=== PATIENT | female | born 1960 ===

== ENCOUNTER → 2019-10-12 09:36 | Outpatient (CLI) | payer OTHER, SELFPAY ==
[2019-10-12 11:08] LABS: Cholesterol 310 mg/dL (140-199); HDL Cholesterol 60 mg/dL (40-60); LDL Cholesterol Calculated 202 mg/dL (<100); Triglycerides 239 mg/dL (35-150)
== END ==
PROVIDERS: PCP Internal Medicine; Visit Provider Internal Medicine
DX: E78.5 Hyperlipidemia, unspecified (principal)
CPT/HCPCS: 36415; 80061

== ENCOUNTER → 2021-11-19 09:48 | Outpatient (CLI) | payer OTHER, SELFPAY ==
--- NOTE | 2021-11-19 | DI.CT.S_ITS ---
PROCEDURE: CT SINUS SCREEN WO CON INDICATIONS: SINUSITIS,CHRONIC OR RECURRENT; RHINOSINUSITIS TECHNIQUE: Helical axial CT of the paranasal sinuses was obtained without contrast and reformatted in multiple planes. Automated exposure control and/or adjustment of the dose parameters according to patient's size was utilized for radiation dose reduction. COMPARISON: None. FINDINGS: Maxillary Sinuses: Right maxillary sinus mucosal thickening with complete opacification of the sinus with fluid and debris. Bilateral uncinectomies and left-sided Leroy cell noted. The right infundibulum is obstructed, while the left infundibulum is widely patent. Sphenoid Sinuses: The sphenoethmoidal recesses are patent and unobstructed. The sphenoid sinuses are clear. Sphenoid pneumatization pattern is post-sellar, extending beyond the dorsum sella to the dorsal cortex of the clivus. No [place] or sphenoethmoidal air cells present. The optic nerve is well covered. Frontal Sinuses: The frontal recesses are both patent. The frontal sinuses are clear. Ethmoid Sinuses: The ethmoid air cells are clear without significant mucosal thickening or air-fluid levels. Minimal debris noted in the posterior ethmoid air cells. The fovea ethmoidalis and cribriform plate are unremarkable. The lamina papyracea are both structurally intact. Lateral lamella are symmetric. Nasal Cavity and Septum: Nasal turbinates unremarkable without pneumatization. Cartilaginous and osseous components of the nasal septum intact and midline without perforation. Skull Base: The anterior cranial fossa and pituitary sella are unremarkable. No evidence of bony dehiscence. Both osseous orbits and contents are within normal limits. IMPRESSION: 1. Persistent right maxillary mucosal disease with intra sinus debris status post bilateral uncinectomies 2. Incidental left maxillary Leroy cell Approved by: Brian Leslie M.D. on 11/19/2021 at 11:17 .
== END ==
PROVIDERS: Referring Provider Otolaryngology; Visit Provider Otolaryngology
DX: J32.4 Chronic pansinusitis (principal)
CPT/HCPCS: 70486

== ENCOUNTER → 2022-04-16 15:51 | Outpatient (ROUT) | payer OTHER, SELFPAY ==
[2022-04-16 17:20] LABS: COVID-19 CEPHEID PCR (VTM/NP) Negative (Negative)
== END ==
PROVIDERS: Visit Provider Otolaryngology
DX: J32.4 Chronic pansinusitis (principal); J34.89 Other specified disorders of nose and nasal sinuses; J30.9 Allergic rhinitis, unspecified; Z20.822 Contact with and (suspected) exposure to COVID-19
CPT/HCPCS: U0003; U0005

== ENCOUNTER 2022-04-18 11:45 | Day surgery (SDC) | payer OTHER, SELFPAY ==
[2022-04-16 13:13] VITALS: BMI 35.9
[2022-04-18] VITALS (7 sets, daily range): BP systolic 143–164; BP diastolic 86–99; PULSE 75–89; RESP 12–17; TEMP 35.9–36; O2SAT 95–98; BMI 35.9
--- NOTE | 2022-04-18 | PATH_ITS ---
[facility] Accession Number: [id number] . 01 Material submitted: . sinus, maxillary - RIGHT MAXILLARY SINUS . 01 Diagnosis: Right Maxillary Sinus, Biopsy: Chronic, active sinusitis. No evidence of neoplasm. [facility] 04/19/2022 1702 Local . 01 Electronically signed: . Delicia Henao MD, Pathologist NPI- [id number] . 01 Gross description: . RIGHT MAXILLARY SINUS: Received in formalin are 4 fragment(s) of hernandez, soft tissue measuring 0.5 x 0.4 x 0.4 cm to 0.5 x 0.3 x 0.3 cm submitted entirely in 1 cassette(s) /QBJ 04/19/2022 0259 Local . 01 Pathologist provided ICD-10: J32.4 . 01 CPT . 485782 Specimen Comment: A courtesy copy of this report has been sent to [phone] Performed at: 01 [facility] [address] [place] [address] [address], [place], [place] [id number] MD Raj Kamara MD Phone: [phone]
[2022-04-18] MEDS: OXYMETAZOLINE NASAL SPRAY 15 ML 2 SPRAYS NASAL ×2 (12:21→15:04)
[2022-04-18] MEDS: LACTATED RINGERS 1,000 ML 42 ML IV ×2 (12:22→14:00)
--- NOTE | 2022-04-18 13:55 | PM.PREOP ---
Pre-operative Note Interval Note History & Physical reviewed/Exam performed by Physician: Yes Changes to H&P: No
--- NOTE | 2022-04-18 13:55 | PM.HP.1 ---
History of Present Illness History of Present Illness Date Patient Seen: 04/18/22 Time Patient Seen: 13:56 Chief complaint: [facility] Narrative: 61-year-old female last seen in clinic 03/11/2022 presents for right endoscopic maxillary antrostomy with tissue removal as well as anterior ethmoidectomy. No interval health changes, problem has persisted despite maximal medical therapy in the past. Patient History Medical History Allergies (~1958) Arthritis (~2009) Asthma (~1958) Chronic rhinosinusitis Eczema (~2009) Osteoarthritis (~2009) Surgical History Anesthesia H/O dilation and curettage H/O vaginal delivery H/O wrist surgery (~2016) H/O wrist surgery (~2011) History of ankle surgery (~2003) History of right salpingo-oophorectomy Family & Social History Family History Father Cancer Mother No problems noted. Sister Macular degeneration Sister Crohn's disease Grandmother Diabetes mellitus Grandmother Hypertension Stroke Social History: household members spouse Tobacco & Substance use: Smoking Status Never smoker alcohol intake current alcohol intake frequency a few times a week Substance Use Type does not use Meds Home Medications and Allergies Home Medications Medication Instructions Recorded Confirmed Type propranolol 20 mg tablet 20 mg PO BID 11/09/19 04/18/22 History Allergies Allergy/AdvReac Type Severity Reaction Status Date / Time No Known Drug Allergies Allergy Unverified 11/09/19 10:21 Review of Systems Review of Systems Narrative: Negative except as listed in the HPI Exam Vital Signs (past 8 hours): - 04/18/22 12:09 Temperature 96.8 F L Pulse Rate 89 Respiratory Rate 16 Blood Pressure 164/99 H Pulse Oximetry 98 Oxygen Delivery Method Room Air Oxygen Delivery Method Room Air Narrative Exam Narrative: Well-developed well-nourished female in no acute distress heart regular rate and rhythm without murmur, lungs clear to auscultation bilaterally Assessment & Plan Assessment & Plan narrative: Assessment right chronic maxillary sinusitis, nasal obstruction, allergic rhinitis Plan: Following discussion of the material risks benefits complications and alternatives, patient elected to proceed with right maxillary and anterior ethmoid endoscopic sinus surgery as outpatient. Time Spent With Patient Critical Care time: I spent a total of [] minutes of critical care time on this patient's care today; this time is exclusive of procedural time.
--- NOTE | 2022-04-18 13:58 | P.OP_ITS ---
Operative Date/Time/Diagnoses Date of procedure: 04/18/22 Time of procedure: 15:17 Pre-op diagnosis: Right maxillary and anterior ethmoid chronic rhinosinusitis, allergic rhinitis Post-op diagnosis: same Procedure & Clinicians Procedure: 1. Right endoscopic maxillary antrostomy with tissue removal 2. Right endoscopic anterior ethmoidectomy Same procedure as scheduled: Yes Indications: 61-year-old female with the above diagnoses incompletely managed with medical therapy presents for the above procedures. Following discussion of the material risks benefits complications and alternatives, she elected to proceed. Surgeon: Jorden Payan Click Yes if Unassisted: Yes Anesthesia Type: General and Local Operative Notes Findings: Inflamed middle meatus with antelmo bright green purulence, also inspissated purulent debris filling inflamed maxillary sinus, cx and specimen for path sent, oozing from all irritated mucosa. Specimen(s): other (Culture RIGHT maxillary sinus, also tissue to pathology) Estimated Blood Loss (mL): 150 Procedure in detail: Following identification and confirmation of consent as well as preoperative Afrin nasal spray, the patient was brought to the operating room suite and placed in the supine position. General endotracheal anesthesia was administered. Following sterile prep and drape, Under endoscopic guidance the posterior and anterior superior insertion of the middle turbinate was then infiltrated with additional local anesthetic via spinal needle, with small c otton pledgets with 1 1000 epinephrine placed into the middle meatus for several minutes. The right middle turbinate was slightly medialized and the remnant uncinate process was identified with completion uncinectomy performed via the backbiting forceps and the microdebrider. The natural os of the maxillary sinus was included in the large antrostomy extended posteriorly and inferiorly with forceps and the microdebrider. Anterior ethmoidectomy with removal of remnant polypoid ethmoid bulla was performed with the microdebrider. The sinus was irrigated with saline several times, and the area temporarily packed with the epi cottonoids and afrin on cotton, with final hemostasis with suction electrocautery on 10 for select oozing areas of mucosa. The procedure completed, sponge and needle counts were correct and the patient was extubated in the operating room and taken to recovery room in stable condition without known complication. Complications: none Post-operative Condition: stable Disposition: same day surgery Plan for aftercare: Nasal saline every hour while awake, begin irrigations t.i.d. tomorrow. Tylenol alternating with Advil for pain control, oxycodone for breakthrough pain. Elevate head of bed, no nose blowing, no straining for 2 weeks. Follow- up in 1 week
[2022-04-18] MEDS: EPINEPHrine 1 MG/ML IRR (14:45)
[2022-04-18] MEDS: LIDOCAINE 1% W/EPI 6 ML INJ (14:45)
--- NOTE | 2022-04-18 14:55 | SUR.OPER ---
Supine on padded OR bed, head on gel donut, arms padded and tucked at sides, legs uncrossed, safety belt at thigh, gel pad under bilateral heels.
[2022-04-18] MEDS: OXYCODONE/ACETAMINOPHEN 5/325 TABLET 1 TAB PO (15:55)
== END 2022-04-18 16:10 | disposition home or self-care (01) ==
PROVIDERS: Referring Provider Otolaryngology; Visit Provider Otolaryngology
PROC: (CPT 31231; principal; 2022-04-18 13:00)
DX: J32.4 Chronic pansinusitis (principal); J34.89 Other specified disorders of nose and nasal sinuses; J30.9 Allergic rhinitis, unspecified
CPT/HCPCS: 31254; 31267; 00160; 87070; 87075; 87077; 87147; 87185; 87186; 87205; A9270; J0171; J2250; J2405; J2704; J3010